=== PATIENT | male | born 1965 | race Hispanic/Latino ===

== ENCOUNTER 2020-05-10 12:32 | Emergency (ER) | payer OTHER ==
[2020-05-10] MEDS ORDERED: Atropine Sulfate 1 mg/10 ml Syringe ONE (14:14)
[2020-05-10] MEDS ORDERED: Calcium Chloride 1 GM/10 ML Abboject SYRINGE ONE (14:14)
[2020-05-10] MEDS ORDERED: Amiodarone 150 MG/3 ML VIAL ONE (14:14)
[2020-05-10] MEDS ORDERED: EPINEPHrine 1 MG/10 ML Abboject SYRINGE ONE (14:14)
[2020-05-10] MEDS ORDERED: Sodium Bicarb 50 MEQ/50 ML Abboject 8.4% SYRINGE ONE (14:14)
== END 2020-05-10 13:10 | disposition expired ==
LOC: ERS 12:32
DX: I46.9 Cardiac arrest, cause unspecified (principal); E11.9 Type 2 diabetes mellitus without complications; Z79.84 Long term (current) use of oral hypoglycemic drugs
CPT/HCPCS: 92950; 96374; 96375; J0171; J0282; J0461; J2997